=== PATIENT | male | born 2000 | race African-American/Black ===

== ENCOUNTER 2018-09-25 09:33 | Emergency (ER) | payer BC, SELFPAY ==
[2018-09-25 09:35] VITALS: BP 113/79; PULSE 76; RESP 18; TEMP 36.4; O2SAT 100; BMI 20.8
[2018-09-25] MEDS: 0.9% Normal Saline 1,000 ML 1000 ML IV (09:54)
[2018-09-25] MEDS: Ondansetron 4 MG/2 ML Vial IV (09:54)
[2018-09-25] MEDS: Ketorolac 30 MG/ML Syringe IV (09:54)
--- NOTE | 2018-09-25 10:38 | ED.VISSUMM ---
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 He reports his vomiting diarrhea that began approximately 8 hours ago. States is vomited 7 times. No blood in his emesis. He had one episode of diarrhea. No blood in stools or black tarry stools. He reports he is cramping diffuse abdominal pain and stated 10 at worst and 5-10 currently. Is worsened by nothing relieved by nothing. Patient denies sick contacts. Has not been camping out of the country. No possible bad food exposure. Does not drink well water. No recent antibiotic use. Physical Examination: Vitals: Stable. Afebrile. General: Well-nourished and well-developed. Head: Normocephalic atraumatic. Neck: Supple, no lymphadenopathy. No JVD. Nontender. Cardiovascular: Regular rate and rhythm. No murmurs. Respiratory: No respiratory distress. Clear to auscultation bilaterally. Abdominal: Soft, mild diffuse tenderness to palpation, nondistended, normal bowel sounds. No guarding, rebound, or peritoneal signs. Back: Nontender. Extremities: Nontender, no edema. Skin: Normal color, no rash. Neurologic: Alert and oriented ?3. Cranial nerves II through XII are intact. Normal strength and sensation. Psych: Normal affect. Emergency Department Course and Treatment: Patient had an IV placed. He was given a liter of normal saline. He was given Toradol and Zofran IV. He is resting comfortably and feels improved. Treatment Plan: Patient will be discharged with Zofran. Instructed to follow-up Dr. Beverly and/or the [facility] in 1-2 days not improving. Return to the emergency department for any worsening symptoms. Disposition: To home in improved and stable condition. Impression: 1. Vomiting/diarrhea. This note was generated with [employer] dictation software. It may contain incorrect words, spelling, and punctuation that were not noted in review of the chart prior to signing ED Disposition - Plan for ED Patient: Disposition: Home or Assisted Living Chief Complaint: Nausea/Vomiting/Diarrhea Instructions: ED Vomiting Diarrhea Nonspecific Ad Prescriptions: Ondansetron [Zofran Odt] 4 mg PO Q8H PRN PRN #10 tablet PRN Reason: Nausea Referrals: Mark Beverly MD [STAFF PHYSICIAN] - 1-2 Days if not improving [facility] [GROUP OF PHYSICIANS] - 1-2 Days if not improving
[2018-09-25 10:53] VITALS: BP 112/70; PULSE 67; RESP 14; O2SAT 99
== END 2018-09-25 10:54 | disposition home or self-care (01) ==
LOC: ED 09:51
PROVIDERS: Emergency Provider Emergency Medicine
DX: R19.7 Diarrhea, unspecified (principal); R11.2 Nausea with vomiting, unspecified; R10.84 Generalized abdominal pain
CPT/HCPCS: 96361; 96374; 96375; 99283; J7030; A4216; J2405

== ENCOUNTER 2019-08-26 14:49 | Emergency (ER) | payer BC, SELFPAY ==
[2019-08-26 14:50] VITALS: BP 127/71; PULSE 59; RESP 16; TEMP 36.9; O2SAT 100; BMI 20.3
--- NOTE | 2019-08-26 15:29 | ED.DCSUM_ITS ---
History of Present Illness Chief Complaint: General Illness Detail of Chief Complaint: fatigue Informant: Patient Onset: Days - 6 Context: Gradual Onset - after running an 8-mile cross country race Timing: Continuous Quality: fatigue Location: all over Current Severity: Mild Maximum Severity: Mild Worsened by: nothing Relieved by: nothing Associated Symptoms: chest tightness/sob, right neck painful lymph nodes Narrative: Patient had a history of Kikuchi-Jennifer disease and when he developed painful lymph nodes on the right side of his neck he became concerned that maybe it was coming back. The pain is mild and sore. He was diagnosed with that at [facility] in [facility] where he is from. 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 He states during a race 1 week ago, after crusting a hill more than [place] through the race he was more short of breath than usual, he felt a little chest tightness. He does not know if he was wheezing or not. This persisted for a day or 2 gradually resolved. It was mild. He noticed that his heart rate was in the 60s according to his Fitbit, and it is usually in the 40s. He denies any other systemic symptoms other than fatigue. He thought maybe had a fever 2 days after the race but he states it was 99 and never higher. Since then he is just felt fatigued and has had no other symptoms. No dark urine. No myalgias. No known history of anemia or other medical problems. - Past Medical History (1) Kikuchi disease Status: Resolved Past Medical History - Allergies and Home Meds Allergies/Adverse Reactions: Allergies No Known Allergies Allergy (Verified 08/26/19 14:53) Primary Care Physician: Care Physician,No Primary [NON-STAFF] - Surgical History: - - Right anterior neck biopsy lymph node Lives: Roommate Smoking Status: Never smoker Review of Systems General: Reports: Malaise. Denies: Chills, Fever, Sweats Eyes: Denies: Visual changes - bilaterally, Diplopia ENT: Denies: Bilateral ear pain, Rhinorrhea, Sore throat Cardiovascular: Denies: Chest pain, Palpitations Respiratory: Denies: Dyspnea, Cough, Dyspnea on exertion Gastrointestinal: Denies: Abdominal pain, Nausea, Vomiting, Diarrhea, Melena, Hematochezia Genitourinary: Denies: Dysuria, Hematuria, Frequency Musculoskeletal: Reports: Neck pain. Denies: Myalgias, Arthralgias, Back pain, Extremity Pain Skin: Denies: Rash, Wounds Neurological: Denies: Headache, Weakness, Numbness Physical Exam Vital Signs/Narrative: Vital Signs Temp Pulse Resp BP Pulse Ox 08/26/19 14:50 98.4 F 59 L 16 127/71 H 100 Inital Vital Signs reviewed: Yes General: Well nourished, Well developed, No Acute Distress Head: Normocephalic, Atraumatic Eyes: Perrl, EOMI ENT: Moist mucous membranes, No rhinorrhea, TM's clear, - - POP clear. Negative for: Sinus tenderness Neck: Supple, - - Mildly tender palpable superficial cervical lymph nodes at the mid right sternocleidomastoid. The lymph nodes do not feel larger than normal but they are palpable, 2 or 3 of them. No overlying erythema or other skin abnormality. This is posterior to his remote lymph node biopsy. Cardiovascular: Regular rate, Regular rhythm, No murmurs, Normal S1, Normal S2. Negative for: Tachycardia Respiratory: No distress, CTA bilaterally, Chest nontender Abdomen: Soft, Nontender, Nondistended, Normal bowel sounds Back: Nontender, Normal Inspection Extremities: Nontender, No edema. Negative for: Calf Tenderness Skin: Normal color, No rash, No Trauma Neurological: Alert, Oriented x3, Cranial nerves II-XII grossly intact, Normal Strength, Normal Sensation, Normal Gait Psychological: Normal affect, Normal Mood Diagnostic/Tx/Re-eval Laboratory Tests 08/26/19 08/26/19 Range/Units 15:35 15:35 WBC 3.7 L (4.4-11.0) K/mm3 RBC 4.81 (4.6-6.2) M/mm3 Hgb 14.1 (13.0-16.5) g/dL Hct 43.3 (40-54) % MCV 90.0 (80-94) fL MCH 29.3 (27.0-32.0) pg MCHC 32.6 (32-36) g/dL RDW Std Deviation 42.2 (35.1-43.9) fl RDW Coeff of Svetlana 12.6 (11.6-14.6) % Plt Count 155 (150-450) K/mm3 MPV 11.2 (6.2-12.0) fl Immature Gran % (Auto) 0.300 (0.0-0.9) % Neut % (Auto) 54.2 (47-70) % Lymph % (Auto) 31.1 (19-41) % Graham % (Auto) 10.9 H (0-10) % Eos % (Auto) 3.0 (0-5) % Baso % (Auto) 0.5 (0-1) % Absolute Neuts (auto) 2.0 (2.0-7.7) X10^3/uL Absolute Lymphs (auto) 1.14 (0.83-4.51) X10^3/uL Nucleated RBC % 0 (0-5) % Sodium 137 (136-145) mmol/L Potassium 4.0 (3.5-5.1) mmol/L Chloride 100 (98-107) mmol/L Carbon Dioxide 30.0 (21.0-32.0) mmol/L Anion Gap 7 (5-15) BUN 14 (7-18) mg/dL Creatinine 0.98 (0.70-1.30) mg/dL Estim Creat Clear Calc 105.57 ml/min Est GFR (MDRD) Af Amer 124 (>60) mL/min Est GFR (MDRD) Non-Af 102 (>60) mL/min BUN/Creatinine Ratio 14.3 (10-20) RATIO Glucose 86 (74-106) mg/dL Calcium 8.6 (8.5-10.1) mg/dL Total Creatine Kinase 251 (39-308) U/L - Medical Decision Making Labs are normal including CPK. Reassured patient this is less likely to be another episode of his prior autoimmune issue. Could be a viral illness but his exam is normal except for the small tender lymph nodes. Advised to follow-up routinely as an outpatient. ED Disposition - Plan for ED Patient: Disposition: Home or Assisted Living Diagnosis: Fatigue, Anterior cervical lymphadenopathy Instructions: CERVICAL ADENITIS, No Antibiotic Referrals: [facility] [GROUP OF PHYSICIANS] - 1 Week if not improving
[2019-08-26 15:40] LABS: Absolute Lymphocyte Count 1.14 X10^3/uL (0.83-4.51); Basophil# 0.02 X10^3/uL; Basophil% 0.5 % (0-1); Eosinophil# 0.11 X10^3/uL; Hematocrit 43.3 % (40-54); Hemoglobin 14.1 g/dL (13.0-16.5); Lymphocyte # 1.14 X10^3/ul (4.0); Lymphocyte % 31.1 % (19-41); Mean Corp Hgb Conc 32.6 g/dL (32-36); Mean Corpuscular Hgb 29.3 pg (27.0-32.0); Mean Platelet Vol. 11.2 fl (6.2-12.0); Monocyte% 10.9 % (0-10); NRBC Flagged by Analyzer 0 % (0-5); Neutrophil # 1.99 X10^3/uL (2.7-7.7); Neutrophil % 54.2 % (47-70); Platelet Count 155 K/mm3 (150-450); RBC Distribution Width CV 12.6 % (11.6-14.6); RBC Distribution Width SD 42.2 fl (35.1-43.9); Red Blood Count 4.81 M/mm3 (4.6-6.2); White Blood Count 3.7 K/mm3 (4.4-11.0)
[2019-08-26 15:56] LABS: Anion Gap 7 (5-15); BUN 14 mg/dL (7-18); BUN/Creat Ratio 14.3 RATIO (10-20); CPK Total, Creatine Kinase 251 U/L (39-308); Calcium,Total 8.6 mg/dL (8.5-10.1); Chloride 100 mmol/L (98-107); Creatinine, Serum 0.98 mg/dL (0.70-1.30); EST Glomerular Filtration Rate 102 mL/min (>60); Est Glom Filt Rate - Afr Amer 124 mL/min (>60); Estimated Creatinine Clearance 105.57 ml/min; Glucose 86 mg/dL (74-106); Sodium Level 137 mmol/L (136-145)
[2019-08-26 17:29] VITALS: PULSE 73; RESP 14; O2SAT 99
== END 2019-08-26 17:31 | disposition home or self-care (01) ==
PROVIDERS: Emergency Provider Emergency Medicine; Family Provider Pediatrics; PCP Pediatrics
DX: R59.0 Localized enlarged lymph nodes (principal); R07.89 Other chest pain; R53.83 Other fatigue
CPT/HCPCS: 80048; 82550; 85025; 99283

== ENCOUNTER 2019-09-06 20:54 | Emergency (ER) | payer BC, SELFPAY ==
[2019-09-06 20:55] VITALS: BP 151/79; PULSE 67; RESP 18; TEMP 38.9; O2SAT 99; BMI 20.5
[2019-09-06 21:00] VITALS: RESP 15; O2SAT 99
--- NOTE | 2019-09-06 21:00 | RAD_ITS ---
STUDY: X-RAY CHEST REASON FOR EXAM: Male, 19 years old. Shortness of breath. Chest tightness. Cough and fever for 4 days. TECHNIQUE: Single AP portable view of the chest. COMPARISON: None. FINDINGS: The lungs are clear and expanded. There is no demonstrated pleural abnormality. Normal size heart. Normal mediastinum and gregoria. Normal visualized pulmonary arteries. Normal visualized aortic arch and descending thoracic aorta. Normal visualized thoracic spine. Normal visualized ribs, clavicles, and shoulders. There is no demonstrated abnormality of the visualized soft tissue structures of the upper abdomen. RAD/Chest 1 View (Portable) IMPRESSION: No acute cardiopulmonary disease. Electronically Signed: Stefan Santiago DO at 21:24 EST Tel [phone], Service support ,
[2019-09-06 21:33] VITALS: O2SAT 100
[2019-09-06] MEDS: Ipratropium/Albuterol Sulfate 3 ML AMPUL.NEB INHALATION (22:33)
[2019-09-06 22:34] VITALS: PULSE 77; RESP 16
[2019-09-06 22:55] LABS: Absolute Lymphocyte Count 1.14 X10^3/uL (0.83-4.51); Absolute Neutrophil Count 1.8 X10^3/uL (2.0-7.7); Basophil# 0.01 X10^3/uL; Basophil% 0.3 % (0-1); Eosinophil# 0.01 X10^3/uL; Eosinophils% 0.3 % (0-5); Hematocrit 43.6 % (40-54); Hemoglobin 14.3 g/dL (13.0-16.5); Lymphocyte # 1.14 X10^3/ul (4.0); Lymphocyte % 35.1 % (19-41); Mean Corp Hgb Conc 32.8 g/dL (32-36); Mean Corpuscular Hgb 28.8 pg (27.0-32.0); Mean Corpuscular Volume 87.9 fL (80-94); Mean Platelet Vol. 11.2 fl (6.2-12.0); Monocyte# 0.24 X10^3/uL; Monocyte% 7.4 % (0-10); NRBC Flagged by Analyzer 0 % (0-5); Neutrophil # 1.84 X10^3/uL (2.7-7.7); Neutrophil % 56.6 % (47-70); POSITIVE MORPHOLOGY YES; Platelet Count 118 K/mm3 (150-450); RBC Distribution Width CV 11.9 % (11.6-14.6); RBC Distribution Width SD 38.4 fl (35.1-43.9); Red Blood Count 4.96 M/mm3 (4.6-6.2); White Blood Count 3.3 K/mm3 (4.4-11.0)
[2019-09-06 22:59] LABS: Differential Indicated SCAN CRITERIA MET
[2019-09-06 23:06] LABS: Anion Gap 6 (5-15); BUN 16 mg/dL (7-18); BUN/Creat Ratio 14.7 RATIO (10-20); Calcium,Total 8.9 mg/dL (8.5-10.1); Chloride 100 mmol/L (98-107); Creatinine, Serum 1.09 mg/dL (0.70-1.30); EST Glomerular Filtration Rate 91 mL/min (>60); Est Glom Filt Rate - Afr Amer 110 mL/min (>60); Estimated Creatinine Clearance 95.53 ml/min; Glucose 98 mg/dL (74-106); Potassium 3.7 mmol/L (3.5-5.1); Sodium Level 134 mmol/L (136-145)
[2019-09-06 23:07] LABS: D-Dimer Quantitative (DVT/PE) 1.25 FEU/ug/m (0.27-0.49)
--- NOTE | 2019-09-06 23:22 | CT_ITS ---
STUDY: CTA CHEST REASON FOR EXAM: Male, 19 years old. Chest tightness. Elevated d-dimer RADIATION DOSAGE (If Supplied By Facility): CTDIvol = ( 4.91 ) mGy, DLP = ( 215.04 ) mGycm TECHNIQUE: The examination was performed with the intravenous administration of IV 75mL [id number]-370 75ML. Post-processing of the angiographic images was performed, with multiplanar reformation and 3D reconstruction. Individualized dose optimization techniques were used for this CT. COMPARISON: None. FINDINGS: TRACHEA, THYROID, ESOPHAGUS: No tracheomalacia,stricture or wall thickening. Thyroid and esophagus are normal CARDIOVASCULAR SYSTEM: The thoracic aorta is normal with no focal aneurysm or dissection. There are no abnormal calcifications/metallic densities at the aortic root. The pulmonary trunk and the left and right pulmonary arteries and their lobar and segmental branches all fail to show any abnormal and persistent filling defects to indicate the presence of pulmonary embolism. The heart is normal in size with no demonstration of any right ventricular strain. No developmental vascular anomalies are seen. VISHAL AND LYMPH NODES: No hilar masses and no mediastinal, hilar, axillary or supraclavicular adenopathy LUNGS, LOW-ATTENUATION: No traction bronchiectasis, honeycombing,emphysema, lung cysts or cavitations LUNGS, HIGH ATTENUATION: No nodules/masses, ground glass opacities/consolidations or increased interstitial markings LUNGS, MOSAIC/CRAZY PAVING: Not evident PLEURA AND CHEST WALL: No plural effusions, pneumothoraces,rib fractures or any osteolytic/osteoblastic changes . The soft tissue chest wall including the breasts are normal UPPER ABDOMEN: Unremarkable . CT/CTA Chest W/WO Contrast IMPRESSION: Normal CTA chest examination, without a demonstrated pulmonary embolism or arterial dissection. No acute findings in the lungs Electronically Signed: Jed Hudson MD at 0:29 EST Tel , Service support ,
[2019-09-06 23:23] LABS: Differential Comment SCANNED
[2019-09-06 23:35] VITALS: BP 129/78; PULSE 82; RESP 16; O2SAT 100
--- NOTE | 2019-09-07 00:31 | ED.VISSUMM ---
- ER Visit Summary Date of Service: 09/07/19 Chief Complaint: Shortness of breath History of Present Illness: The patient is a 19 M who presents with shortness of breath that has been waxing and waning over the past 3 weeks. Patient states it is worse with exertion. 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 Patient states he has had a cough but denies any sputum. Patient states he has had fevers around 100. Patient states that his thermometer is not accurate and at times he was getting readings of 103. Patient states he has been having some pain in his chest that is sharp at times but mostly dull. Patient states this is over the substernal area. Patient denies any nausea or vomiting. Patient denies any diaphoresis. She states he has a history of an autoimmune disorder. Physical Examination: Vital signs are stable. Patient does have a temperature of 102.1 here. Heart rate is 67. Patient states his normal heart rate is in the 40s and 50s. Oral mucosa is pink and moist. Neck is supple. Trachea is midline. There is no JVD. Heart was regular rate and rhythm. Lungs are clear and equal bilaterally. There is good respiratory effort noted. Abdomen is soft. Bowel sounds are normal. There is no tenderness. Cranial nerves II through XII are intact. There are no focal motor or sensory deficits noted. Test Results: A portable chest x-ray was obtained and does not show any acute cardiopulmonary process. D-dimer was elevated at 1.25. CBC showed a white blood cell count 3.3. Platelets were 118. Basic metabolic profile was essentially within normal limits. Due to the elevated d-dimer, a CTA of the chest was obtained. Emergency Department Course and Treatment: Patient was given a DuoNeb aerosol here. Patient was given a dose of Tylenol. Patient is feeling better on reevaluation. Patient was instructed to follow-up with his primary care physician in 5 to 7 days. Patient understood and was agreeable with the plan. All questions were answered. Disposition: Discharge home Impression: Chest pain This note was generated with [employer] dictation software. It may contain incorrect words, spelling, and punctuation that were not noted in review of the chart prior to signing ED Disposition - Plan for ED Patient: Disposition: Home or Assisted Living Diagnosis: Chest pain Instructions: CHEST PAIN, Uncertain Cause Referrals: Mark Beverly MD [Primary Care Provider] - 3-5 Days
[2019-09-07] MEDS: Acetaminophen 500 MG Tablet 1000 MG PO (01:06)
[2019-09-07 01:11] VITALS: BP 133/70; PULSE 71; PULSE 74; RESP 16; O2SAT 96
== END 2019-09-07 01:16 | disposition home or self-care (01) ==
PROVIDERS: Emergency Provider Emergency Medicine; Family Provider Pediatrics; PCP Pediatrics
DX: R07.9 Chest pain, unspecified (principal); R74.8 Abnormal levels of other serum enzymes; R50.9 Fever, unspecified; R05 Cough
CPT/HCPCS: 71045; 71275; 80048; 85025; 85379; 94640; 94760; 99285; Q9967; A4216